=== PATIENT | female | born 1990 | race Caucasian/White ===

== ENCOUNTER 2019-07-09 00:22 | Inpatient (IN) | payer OTHER ==
[2019-07-09 00:41] VITALS: BMI 26.8
[2019-07-09 00:49] LABS: Hemoglobin 11.5 g/dL (12.0-16.0); Mean Corpuscular HGB CONC 33.8 g/dL (32.0-36.0); Mean Corpuscular Hemoglobin 28.3 pg (27.0-31.0); Mean Corpuscular Volume 83.6 fL (78.0-98.0); Platelet Count 168 thou/uL (130-400); RBC Distribution Width 14.7 % (11.5-14.5); Red Blood Cell (RBC) Count 4.09 mill/uL (4.20-5.40); White Blood Cell (WBC) Count 12.1 thou/uL (4.8-10.8)
[2019-07-09] MEDS ORDERED: diphenhydrAMINE 25 MG CAP PO PRN (01:20)
[2019-07-09] MEDS ORDERED: Milk Of Magnesia 30 ML UDCUP PO PRN (01:20)
[2019-07-09] MEDS ORDERED: Zolpidem Tartrate 5 MG TAB PO PRN (01:20)
[2019-07-09] MEDS ORDERED: Misoprostol 200 MCG TAB VAG PRN (01:20)
[2019-07-09] MEDS ORDERED: Benzocaine-Menthol 82.5 ML CAN TOP PRN (01:20)
[2019-07-09] MEDS ORDERED: Ondansetron PF 4 MG/2 ML Vial IVP PRN (01:20)
[2019-07-09] MEDS ORDERED: Preparation H Ointment 28 GM TUBE PR PRN (01:20)
[2019-07-09] MEDS ORDERED: Acetaminophen/Codeine 30-300mg Tablet PO PRN ×2 (01:20)
[2019-07-09] MEDS ORDERED: Adacel (T-DAP) 0.5 ML SYRINGE IM ONE (01:20)
[2019-07-09] MEDS ORDERED: hydrALAZINE 20 MG/ML VIAL SLOW IVP PRN (01:20)
[2019-07-09] MEDS ORDERED: Bisacodyl 10 MG SUPP PR PRN (01:20)
[2019-07-09 01:25] LABS: HBSAg Index 0.12 S/CO (0-0.99); Hep B Surf Ag Non-Reactive S/CO (NonReactive)
[2019-07-09 01:26] LABS: Syphilis Antibody Nonreactive (Nonreactive); Syphilis Antibody Index 0.09 S/CO (<1.00 Non-Reactive)
[2019-07-09] MEDS: NS / Oxytocin 40 units/1000ml 1,000 ML IV SCH ×2 (03:09→04:00)
[2019-07-09] MEDS: Ibuprofen 800 MG TAB PO SCH ×3 (04:27→21:05)
[2019-07-09] MEDS ORDERED: FLU VACC QS2019-20(6MOS UP)/PF 60 MCG/0.5 ML SYRINGE IM ONE (09:00)
[2019-07-09] MEDS: Docusate Calcium (SURFAK) 240 MG CAP PO SCH ×2 (09:04→21:06)
[2019-07-09] MEDS: Lanolin Ointment 7 GM TUBE TOP PRN ×2 (09:04→21:05)
[2019-07-09] MEDS: Prenatal Vitamin 1 TAB PO SCH (09:04)
[2019-07-09] MEDS: Ferrous Sulfate 325 MG TAB PO SCH ×2 (09:05→18:09)
[2019-07-10] MEDS: Ibuprofen 800 MG TAB PO SCH ×3 (06:04→21:35)
[2019-07-10] MEDS: Docusate Calcium (SURFAK) 240 MG CAP PO SCH ×2 (08:53→21:36)
[2019-07-10] MEDS: Prenatal Vitamin 1 TAB PO SCH (08:53)
[2019-07-10] MEDS: Ferrous Sulfate 325 MG TAB PO SCH ×2 (08:54→16:53)
[2019-07-10] MEDS ORDERED: FLU VACC QS2019-20(6MOS UP)/PF 60 MCG/0.5 ML SYRINGE IM ONE (09:00)
[2019-07-11] MEDS: Ibuprofen 800 MG TAB PO SCH ×2 (06:00→13:02)
[2019-07-11 07:58] VITALS: BP 103/61; TEMP 98.5
[2019-07-11] MEDS: Docusate Calcium (SURFAK) 240 MG CAP PO SCH (08:22)
[2019-07-11] MEDS: Prenatal Vitamin 1 TAB PO SCH (08:22)
[2019-07-11] MEDS: Ferrous Sulfate 325 MG TAB PO SCH ×2 (08:23→17:58)
[2019-07-11] MEDS ORDERED: Measles/Mumps/Rubella 10 MCG/0.5 ML VIAL SC ONE (18:15)
== END 2019-07-11 18:30 | disposition home or self-care (01) | DRG 807 ==
LOC: L&D/OP 00:22 → L&D 00:52 → 3SW 08:37
PROVIDERS: ADMIT Obstetrics & Gynecology; ATTEND Obstetrics & Gynecology
PROC: 10D07Z6 Extraction of Products of Conception, Vacuum, Via Natural or Artificial Opening (ICD-10-PCS; principal; 2019-07-09)
PROC: 3E02340 Introduction of Influenza Vaccine into Muscle, Percutaneous Approach (ICD-10-PCS; 2019-07-09)
PROC: 3E0234Z Introduction of Serum, Toxoid and Vaccine into Muscle, Percutaneous Approach (ICD-10-PCS; 2019-07-11)
DX: O99.89 Other specified diseases and conditions complicating pregnancy, childbirth and the puerperium (principal); Z37.0 Single live birth; R00.1 Bradycardia, unspecified; O62.3 Precipitate labor; Z3A.37 37 weeks gestation of pregnancy; Z23 Encounter for immunization
CPT/HCPCS: 36415; 85027; 86780; 86850; 86870; 86900; 86901; 87340; 90707; 99285